=== PATIENT | female | born 1940 | race Caucasian/White ===

== ENCOUNTER 2017-12-23 07:04 | Inpatient (IN) | payer MEDICARE ==
[2017-12-22 10:37] LABS: BASOPHILS # (AUTO) 0.1 (0.0-0.1); EOSINOPHILS # (AUTO) 0.2 (0.0-0.4); EOSINOPHILS % 3.3 % (0.0-6.0); HEMATOCRIT 41.7 % (34.2-44.1); LYMPHOCYTES # (AUTO) 1.7 (1.0-3.2); MEAN CORPUSCULAR HEMOGLOBIN 30.5 pg (28-32); MEAN CORPUSCULAR HGB CONC 33.6 g/dL (31-35); MEAN CORPUSCULAR VOLUME 90.8 fL (81-99); MONOCYTES # (AUTO) 0.6 (0.2-0.8); MONOCYTES % 10.8 % (4.4-11.3); NEUTROPHILS # (AUTO) 2.6 (2.1-6.9); NEUTROPHILS % 50.7 % (38.7-80.0); PLATELET COUNT 205 x10e3/uL (140-360); RED BLOOD COUNT 4.59 x10e6/uL (3.6-5.1); RED CELL DISTRIBUTION WIDTH 13.2 % (11.7-14.4)
[2017-12-22 11:00] LABS: ALBUMIN 3.9 g/dL (3.5-5.0); ANION GAP 10.9 mmol/L (8-16); CREATININE, SERUM 1.03 mg/dL (0.57-1.11); POTASSIUM 4.9 mmol/L (3.5-5.1)
--- NOTE | 2017-12-22 11:25 | Diagnostic Imaging Report ---
PROCEDURE:CHEST 2 VIEWS TECHNIQUE:PA and lateral chest INDICATION:Preoperative evaluation for hernia repair COMPARISON:None. FINDINGS: Lungs are clear and symmetrically inflated. No pleural effusions. Normal heart size and central vasculature. Intact skeleton. Massive hiatal hernia with associated air-fluid level. Atherosclerosis of the abdominal aorta. CONCLUSION: Massive hiatal hernia with air-fluid level. No acute cardiopulmonary abnormality. Dictated by: Yonas Espinal M.D. on 12/22/2017 at 11:28 Electronically approved by: Yonas Espinal M.D. on 12/22/2017 at 11:28
[~2017-12-23] VITALS: Ht 167.6 cm; Wt 75.0 kg
[~2017-12-23 07:04] MED LIST: CHOL MED PO; LEXAPRO PO; LOSARTAN PO; PROBIOTIC PO
--- OUTSIDE RECORDS SUMMARY | 2017-12-23 07:06 | XMS REPORT ---
[facility] Address Unknown Phone Unavailable Care Team Providers Care Sleeve Separator Name Role Phone DONNA BAXTER Unavailable Unavailable Problems This patient has no known problems. Allergies, Adverse Reactions, Alerts This patient has no known allergies or adverse reactions. Medications This patient has no known medications. Results Test Description Test Time Test Comments Text Results Atomic Results Result Comments CHEST 2 VIEWS [place] [id number] Patient Name: VIOLETTE MENDIETA MR #: [id number] : 1940 Age/Sex: 77/F Req # : [id number] Adm Physician: Ordered by: DONNA BAXTER MD Report #: [id number] Location: OR Room/Bed: Procedure: [id number] DX/CHEST 2 VIEWS Exam Date: Exam Time: REPORT STATUS: Signed PROCEDURE: CHEST 2 VIEWS TECHNIQUE: PA and lateral chest INDICATION: Preoperative evaluation for hernia repair COMPARISON: None. FINDINGS: Lungs are clear and symmetrically inflated. No pleural effusions. Normal heart size and central vasculature. Intact skeleton. Massive hiatal hernia with associated air-fluid level. Atherosclerosis of the abdominal aorta. CONCLUSION: Massive hiatal hernia with air-fluid level. No acute cardiopulmonary abnormality. Dictated by: Sandro Espinal M.D. on 12/22/2017 at 11:28 Electronically approved by: Sandro Espinal M.D. on 12/22/2017 at 11:28 Dictated By: SANDRO ESPINAL MD [id number] Transcribed By: EDUARDO on 12/22/17 1128 COPY TO: DONNA BAXTER MD
[2017-12-23] MEDS ORDERED: SIMVASTATIN PO (07:53)
[2017-12-23] MEDS ORDERED: BUPIVACAINE 0.25%/EPI 30ML SDV INJ ONE (12:04)
[2017-12-23] MEDS ORDERED: SUGAMMADEX SODIUM 200 MG/2 ML VIAL IV ONE (12:57)
[2017-12-23] MEDS ORDERED: HYDROMORPHONE 1MG/1ML INJ IV PRN (13:00)
[2017-12-23] MEDS: PANTOPRAZOLE 40 MG 10ML VIAL IV SCH (13:00)
[2017-12-23] MEDS ORDERED: HYDROMORPHONE 2MG/ML INJ IV PRN (13:00)
[2017-12-23] MEDS ORDERED: ACETAMINOPHEN 1000 MG/100 ML IV PRN (13:00)
[2017-12-23] MEDS: SODIUM CHLORIDE 0.9% 250ML IRRIG IR SCH ×3 (13:00→21:44)
[2017-12-23] MEDS ORDERED: FENTANYL CITRATE/PF 100MCG/2 ML INJ ONE ×2 (13:14→20:13)
[2017-12-23] MEDS ORDERED: MORPHINE SULFATE INJ 10 MG/ML ONE (14:16)
[2017-12-23 16:00] VITALS: BP 141/69
[2017-12-23 16:14] VITALS: BP 141/69
[2017-12-23] MEDS: ONDANSETRON HCL INJ 2 MG/ML VIAL IV PRN (16:17)
--- NOTE | 2017-12-23 16:17 | Operative Report ---
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 OPERATIONS PERFORMED: Laparoscopic repair of giant hiatal hernia and Ely fundoplication. ASSISTANTS 1. Dr. Renzo Nelson. 2. TUCKER Rosado. ANESTHESIA: General. COMPLICATIONS: None. ESTIMATED BLOOD LOSS: Minimal. DESCRIPTION OF PROCEDURE: With the patient lying in bed in the supine position under good general endotracheal anesthesia, the abdomen was prepped with Betadine solution and draped in the usual manner. A Veress needle was introduced into the left upper abdomen and pneumoperitoneum was established without any difficulty. An 11 mm trocar was placed in the left upper abdomen and a 10 mm video laparoscope was placed into the intra-abdominal cavity. Under direct vision, two 5 mm trocars were placed in the subxiphoid region, another 5 mm trocar was placed in the right upper quadrant to retract the liver, and an 11 mm trocar was placed in the left upper abdomen. Video laparoscopy at this point revealed a very floppy left lobe of the liver, which made it difficult to retract, but nonetheless we managed to keep it out of the way during the whole procedure. It required an extra 5 mm trocar to be placed in the right upper abdomen to hold that out of the way with 2 separate instruments. Laparoscopy at this point was normal except for the fact that there was a massive hiatal hernia present. All of the stomach, virtually complete stomach, was up in the chest as well as most of the omentum was also up in the chest. The spleen was stuck to the left crura. The rest of the abdominal exploration was otherwise negative. At this point, all of the adhesions to the right crura were then slowly and carefully taken down and we were able to identify the right crura. The hernia sac was then slowly and carefully anteriorly. Once this was done, we were able to start reducing the stomach and the more of the hernia sac that we managed to mobilize the more that we were able to bring down of the stomach. All of this mobilization was done using the Harmonic scalpel. The short gastrics of the fundus of the stomach were then slowly and carefully taken down and the left crura was identified and similarly, the stomach was detached from the mediastinum on the left side by bringing down the hiatal hernia sac. We were then able to identify the esophagus and a bougie and an NG tube were then placed in the stomach under direct vision. Once this was done, we had circumferentially dissected the hernia sac and the esophagus was totally freed up. There was a huge hole in the diaphragm; however, there was a good crura on the left side. The crura on the right side was somewhat weaker, but it was reasonable for repair and the repair was then done by closing the diaphragm posteriorly to the esophagus using interrupted sutures of 0 Ethibond. This gave us satisfactory repair without any tension. The bougie was in place to make sure that we did not make the repair too tight. The fundus of the stomach was then brought in a retroesophageal fashion. A 360-degree wrap was created using interrupted sutures of 0 Ethibond, anchoring one side of the stomach to the lower esophagus to the other side of the stomach. This gave us a nice floppy Ely fundoplication. The bougie was then removed and the NG tube was left in place. Perfect hemostasis was ascertained and again, we checked this is a rather floppy Ely without any tension whatsoever. Once this was done, the pneumoperitoneum was evacuated. The trocars were removed under direct vision and the wounds were then closed in layers. The fascia of the 11 mm trocars was closed with interrupted sutures of 0 Ethibond. All layers were infiltrated on the way out with solution of 0.25% Marcaine. Subcutaneous tissue was approximated with 3-0 Vicryl and the skin was closed with subcuticular 5-0 Vicryl. Benzoin, Steri-Strips, and Band-Aids were applied. The sponge, lap, and needle count was correct. The patient tolerated the procedure well and returned to the recovery room in stable condition. Job#: [id number] BENJA
[2017-12-23] MEDS: DEXTROSE 5%/LACTATED RINGERS 1,000 ML IV SCH ×2 (18:03→21:44)
[2017-12-23] MEDS: KETOROLAC TROMETHAMINE 30 MG/ML VIAL IV PRN (19:35)
[2017-12-23 20:00] VITALS: BP 154/77
[2017-12-23] MEDS ORDERED: GLYCOPYRROLATE INJ 1MG/ 5 ML SYR ONE (20:05)
[2017-12-23] MEDS ORDERED: HYDRALAZINE HCL 20 MG/ML VIAL ONE (20:05)
[2017-12-23] MEDS ORDERED: PROPOFOL IV EMULSION 10 MG/ML 20 ML VIAL ONE (20:05)
[2017-12-23] MEDS ORDERED: NEOSTIGMINE 5 MG/5ML SYR ONE (20:05)
[2017-12-23] MEDS ORDERED: ONDANSETRON HCL INJ 2 MG/ML VIAL ONE (20:05)
[2017-12-23] MEDS ORDERED: LIDOCAINE HCL 2% LOCAL INJ 5 ML SDV VIAL INJ ONE (20:05)
[2017-12-23] MEDS ORDERED: SEVOFLURANE INHAL SOLN 250 ML PEN BTL ONE (20:05)
[2017-12-23] MEDS ORDERED: ROCURONIUM BROMIDE 10 MG/ML 5ML VIAL ONE (20:05)
[2017-12-23] MEDS ORDERED: DEXAMETHASONE SOD PHOS INJ 4 MG/ML VIAL ONE (20:05)
[2017-12-23] MEDS ORDERED: MIDAZOLAM HCL 2 MG/2 ML VIAL ONE (20:13)
[2017-12-24] VITALS (8 sets, daily range): BP systolic 146–170; BP diastolic 72–78
[2017-12-24] MEDS: ONDANSETRON HCL INJ 2 MG/ML VIAL IV PRN ×2 (00:51→09:58)
[2017-12-24] MEDS: KETOROLAC TROMETHAMINE 30 MG/ML VIAL IV PRN ×2 (00:53→18:07)
[2017-12-24] MEDS: SODIUM CHLORIDE 0.9% 250ML IRRIG IR SCH ×6 (01:13→21:00)
[2017-12-24 06:42] LABS: BASOPHILS % 0.1 % (0.0-1.0); HEMATOCRIT 37.9 % (34.2-44.1); HEMOGLOBIN 12.5 g/dL (12.0-16.0); LYMPHOCYTES % 10.9 % (18.0-39.1); MEAN CORPUSCULAR HEMOGLOBIN 30.5 pg (28-32); MEAN CORPUSCULAR VOLUME 92.4 fL (81-99); MONOCYTES # (AUTO) 0.7 (0.2-0.8); MONOCYTES % 7.7 % (4.4-11.3); NEUTROPHILS # (AUTO) 7.4 (2.1-6.9); NEUTROPHILS % 80.9 % (38.7-80.0); PLATELET COUNT 178 x10e3/uL (140-360)
[2017-12-24 07:06] LABS: ANION GAP 11.1 mmol/L (8-16); BLOOD UREA NITROGEN 19 mg/dL (7-26); BUN/CREATININE RATIO 24 (6-25); CALCIUM 8.9 mg/dL (8.4-10.2); CARBON DIOXIDE 28 mmol/L (22-29); CHLORIDE 105 mmol/L (98-107); EST GLOMERULAR FILTRATION RATE > 60 ML/MIN (60-); GLUCOSE 150 mg/dL (74-118); POTASSIUM 4.1 mmol/L (3.5-5.1); SODIUM 140 mmol/L (136-145)
[2017-12-24] MEDS: DEXTROSE 5%/LACTATED RINGERS 1,000 ML IV SCH ×2 (07:50→18:59)
[2017-12-24] MEDS: NITROGLYCERIN 2% OINT 1 GM PKT TOP SCH ×2 (09:54→16:35)
[2017-12-24] MEDS: PANTOPRAZOLE 40 MG 10ML VIAL IV SCH (12:20)
[2017-12-25] VITALS (7 sets, daily range): BP systolic 159–198; BP diastolic 77–93
[2017-12-25] MEDS: NITROGLYCERIN 2% OINT 1 GM PKT TOP SCH ×5 (00:26→23:51)
[2017-12-25] MEDS: SODIUM CHLORIDE 0.9% 250ML IRRIG IR SCH ×3 (00:30→09:16)
[2017-12-25] MEDS: DEXTROSE 5%/LACTATED RINGERS 1,000 ML IV SCH ×2 (03:39→12:48)
[2017-12-25] MEDS: ONDANSETRON HCL INJ 2 MG/ML VIAL IV PRN (06:11)
[2017-12-25] MEDS: KETOROLAC TROMETHAMINE 30 MG/ML VIAL IV PRN (06:12)
[2017-12-25 07:56] LABS: BASOPHILS % 0.3 % (0.0-1.0); EOSINOPHILS # (AUTO) 0.1 (0.0-0.4); EOSINOPHILS % 1.1 % (0.0-6.0); HEMATOCRIT 34.6 % (34.2-44.1); HEMOGLOBIN 11.5 g/dL (12.0-16.0); LYMPHOCYTES % 14.4 % (18.0-39.1); MEAN CORPUSCULAR HEMOGLOBIN 31.2 pg (28-32); MEAN CORPUSCULAR HGB CONC 33.2 g/dL (31-35); MEAN CORPUSCULAR VOLUME 93.8 fL (81-99); MONOCYTES # (AUTO) 0.6 (0.2-0.8); MONOCYTES % 8.7 % (4.4-11.3); NEUTROPHILS # (AUTO) 5.3 (2.1-6.9); NEUTROPHILS % 74.9 % (38.7-80.0); PLATELET COUNT 139 x10e3/uL (140-360); RED BLOOD COUNT 3.69 x10e6/uL (3.6-5.1); RED CELL DISTRIBUTION WIDTH 13.7 % (11.7-14.4)
[2017-12-25 08:09] LABS: BLOOD UREA NITROGEN 12 mg/dL (7-26); BUN/CREATININE RATIO 18 (6-25); CALCIUM 8.4 mg/dL (8.4-10.2); CARBON DIOXIDE 31 mmol/L (22-29); CHLORIDE 104 mmol/L (98-107); CREATININE, SERUM 0.67 mg/dL (0.57-1.11); EST GLOMERULAR FILTRATION RATE > 60 ML/MIN (60-); GLUCOSE 124 mg/dL (74-118); SODIUM 139 mmol/L (136-145)
[2017-12-25] MEDS: PANTOPRAZOLE 40 MG 10ML VIAL IV SCH (12:48)
[2017-12-25] MEDS: LOSARTAN POTASSIUM 25 MG TAB PO SCH (15:20)
[2017-12-25] MEDS ORDERED: HYDROMORPHONE 1MG/1ML INJ IV PRN (16:45)
[2017-12-25] MEDS ORDERED: LORAZEPAM INJ 2 MG/ML VIAL IV NR (17:30)
[2017-12-25] MEDS ORDERED: SIMVASTATIN 20 MG TAB PO SCH (21:00)
[2017-12-25] MEDS ORDERED: CLONIDINE HCL 0.2 MG TAB PO PRN (21:45)
[2017-12-26] VITALS: BP 167/84
[2017-12-26 04:00] VITALS: BP 138/77
[2017-12-26] MEDS: NITROGLYCERIN 2% OINT 1 GM PKT TOP SCH ×2 (06:11→12:58)
[2017-12-26 06:55] LABS: BASOPHILS % 0.7 % (0.0-1.0); EOSINOPHILS # (AUTO) 0.2 (0.0-0.4); EOSINOPHILS % 3.4 % (0.0-6.0); HEMATOCRIT 30.9 % (34.2-44.1); HEMOGLOBIN 10.1 g/dL (12.0-16.0); LYMPHOCYTES # (AUTO) 1.1 (1.0-3.2); LYMPHOCYTES % 19.8 % (18.0-39.1); MEAN CORPUSCULAR HEMOGLOBIN 30.5 pg (28-32); MEAN CORPUSCULAR HGB CONC 32.7 g/dL (31-35); MEAN CORPUSCULAR VOLUME 93.4 fL (81-99); MONOCYTES # (AUTO) 0.6 (0.2-0.8); MONOCYTES % 10.6 % (4.4-11.3); NEUTROPHILS # (AUTO) 3.7 (2.1-6.9); NEUTROPHILS % 65.3 % (38.7-80.0); PLATELET COUNT 132 x10e3/uL (140-360); RED BLOOD COUNT 3.31 x10e6/uL (3.6-5.1); RED CELL DISTRIBUTION WIDTH 13.2 % (11.7-14.4)
[2017-12-26 07:11] LABS: BLOOD UREA NITROGEN 10 mg/dL (7-26); BUN/CREATININE RATIO 14 (6-25); CALCIUM 8.7 mg/dL (8.4-10.2); CARBON DIOXIDE 30 mmol/L (22-29); CHLORIDE 97 mmol/L (98-107); EST GLOMERULAR FILTRATION RATE > 60 ML/MIN (60-); GLUCOSE 96 mg/dL (74-118); POTASSIUM 3.2 mmol/L (3.5-5.1)
[2017-12-26 07:20] LABS: ANION GAP 15.2 mmol/L (8-16); SODIUM 139 mmol/L (136-145)
[2017-12-26 08:15] VITALS: BP 129/71
[2017-12-26] MEDS ORDERED: ESCITALOPRAM OXALATE 10 MG TAB PO SCH (09:00)
[2017-12-26 10:00] VITALS: BP 129/71
[2017-12-26] MEDS: LOSARTAN POTASSIUM 25 MG TAB PO SCH (10:00)
[2017-12-26 12:43] VITALS: BP 165/79
[2017-12-26] MEDS: PANTOPRAZOLE 40 MG 10ML VIAL IV SCH (12:59)
[2017-12-26 16:49] VITALS: BP 154/70
== END 2017-12-26 17:20 | disposition home or self-care (01) | DRG 328 ==
LOC: OR 07:04 → MED/SURG 15:04
PROVIDERS: ADMIT Surgery; ATTEND Surgery
PROC: 0DV44ZZ Restriction of Esophagogastric Junction, Percutaneous Endoscopic Approach (ICD-10-PCS; 2017-12-23)
PROC: 0BQT4ZZ Repair Diaphragm, Percutaneous Endoscopic Approach (ICD-10-PCS; principal; 2017-12-23 09:47)
DX: K44.9 Diaphragmatic hernia without obstruction or gangrene (principal); K21.9 Gastro-esophageal reflux disease without esophagitis; I10 Essential (primary) hypertension; Z88.5 Allergy status to narcotic agent; I25.10 Atherosclerotic heart disease of native coronary artery without angina pectoris; G47.33 Obstructive sleep apnea (adult) (pediatric); K57.90 Diverticulosis of intestine, part unspecified, without perforation or abscess without bleeding; F41.9 Anxiety disorder, unspecified
CPT/HCPCS: 36415; 71046; 80048; 80053; 82948; 85025; 93005; J0360; J1100; J1885; J2001; J2250; J2270; J2405; J7120